=== PATIENT | male | born 2005 | race Hispanic/Latino ===

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

== ENCOUNTER 2024-09-29 21:47 | Emergency (ER) | payer OTHER ==
[~2024-09-29] VITALS: Ht 175.3 cm; Wt 79.4 kg
[2024-09-29 22:30] VITALS: PULSE 58; RESP 18; TEMP 98
[2024-09-30] MEDS ORDERED: LIDOCAINE 1% W/EPINEPHRINE 20 ML VIAL INJ ONE (01:15)
[2024-09-30] MEDS: TETANUS/DIPHTHERIA TOX ADULT 0.5 ML SYR IM ONE (03:16)
[2024-09-30] MEDS: BACITRACIN ZINC 0.9GM TP ONE (03:54)
[2024-09-30 03:55] VITALS: BP 128/75; O2SAT 100
== END 2024-09-30 03:56 | disposition home or self-care (01) ==
LOC: ER 23:32
DX: S01.81XA Laceration without foreign body of other part of head, initial encounter (principal); W20.8XXA Other cause of strike by thrown, projected or falling object, initial encounter; Y93.B3 Activity, free weights; Y92.89 Other specified places as the place of occurrence of the external cause
CPT/HCPCS: 70450; 90471; 90714; 99284